=== PATIENT | female | born 1985 | race Caucasian/White ===

== ENCOUNTER 2019-11-10 13:54 | Inpatient (IN) | payer SELFPAY ==
[2019-11-10] MEDS ORDERED: AMPICILLIN/SULBACTAM 3 GM in SODIUM CHLORIDE 0.9% MINIBAG 100 ML IV STA (13:58)
[2019-11-10] MEDS ORDERED: IOVERSOL 320 100 ML VIAL IVP ONE ×2 (14:11→16:50)
[2019-11-10 14:16] LABS: BASOPHILS # (AUTO) 0.1 10^3/uL (0.0-0.1); BASOPHILS % (AUTO) 0.4 %; EOSINOPHILS # (AUTO) 0.1 10^3/uL (0.0-0.7); EOSINOPHILS % (AUTO) 0.3 %; HGB - HEMOGLOBIN 13.6 g/dL (12.0-16.0); LYMPHOCYTES # (AUTO) 1.7 10^3/uL (1.5-3.5); LYMPHOCYTES % (AUTO) 10.3 %; MEAN CORPUSCULAR HEMOGLOBIN 32.3 pg (27.0-31.0); MEAN CORPUSCULAR HGB CONC 33.4 g/dL (32.0-36.0); MEAN CORPUSCULAR VOLUME 96.7 fL (81.0-99.0); MONOCYTES % (AUTO) 6.1 %; NEUTROPHILS # (AUTO) 13.2 10^3/uL (1.5-6.6); NEUTROPHILS % (AUTO) 82.2 %; PLT - PLATELET COUNT 298 10^3/uL (130-450); RED BLOOD COUNT 4.21 10^6/uL (4.20-5.40); RED CELL DISTRIBUTION WIDTH 12.1 % (12.0-15.0)
[2019-11-10 14:25] LABS: CALCIUM 9.2 mg/dL (8.5-10.3); CREATININE 0.6 mg/dL (0.4-1.0)
[2019-11-10] MEDS ORDERED: MORPHINE 2 MG/ML CARPUJECT IVP STA (14:52)
--- NOTE | 2019-11-10 14:54 | ED Physician Documentation ---
PD HPI HEENT - Stated complaint Stated Complaint: MOUTH PX/SENT BY - Chief complaint Chief Complaint: Heent - History obtained from History obtained from: Patient - History of Present Illness Timing - onset: How many days ago (2-3) Timing - duration: Days (2-3) Timing - details: Abrupt onset Severity Comments: moderate to severe Location: Other (Right facial swelling, mouth pain, dental pain) Improves: Nothing Worsens: Other (palpation, opening her mouth) Associated symptoms: Trismus, Facial swelling. No: Fever, Congestion Similar symptoms before: Has not had sx before Recently seen: Clinic (was seen in ENT clinic this morning and referred to the ED for labs, IV, and CT imaging evaluation) - Treatment prior to arrival Treatment prior to arrival: tylenol earlier today Review of Systems Ten Systems: 10 systems reviewed and negative Constitutional: denies: Fever, Chills Ears: reports: Reviewed and negative Nose: reports: Reviewed and negative Throat: reports: Dental pain / toothache GI: denies: Nausea, Vomiting Skin: reports: Reviewed and negative Musculoskeletal: denies: Neck pain Neurologic: reports: Reviewed and negative. denies: Headache Psychiatric: reports: Reviewed and negative Endocrine: reports: Reviewed and negative Immunocompromised: reports: Reviewed and negative PD PAST MEDICAL HISTORY - Past Medical History Past Medical History: No - Allergies Allergies/Adverse Reactions: Allergies Allergy/AdvReac Type Severity Reaction Status Date / Time No Known Drug Allergies Allergy Verified 11/10/19 14:14 PD ED PE NORMAL - Vitals Vital signs reviewed: Yes - General General: Alert and oriented X 3, No acute distress, Well developed/nourished - HEENT HEENT: Atraumatic - Cardiac Cardiac: RRR - Respiratory Respiratory: No respiratory distress - Abdomen Abdomen: Soft, Non distended - Female Female : Deferred - Rectal Rectal: Deferred - Derm Derm: Normal color, Warm and dry, No rash - Neuro Neuro: Alert and oriented X 3 Eye Opening: Spontaneous Motor: Obeys Commands Verbal: Oriented GCS Score: 15 - Psych Psych: Normal mood, Normal affect PD ED PE EXPANDED - HEENT HEENT: Other (Large amount of R jaw line swelling, mucous membranes moist, trismus present, unable to visualize inside of mouth. The sweling is firm and tender. no erythema) - Neck Neck: Other (Right submandibular swelling and tenderness that is moderate to severe) Results - Vitals Vitals: Vital Signs - 24 hr 11/10/19 11/10/19 14:14 15:59 Temperature 37.2 C Heart Rate 88 80 Respiratory 18 18 Rate Blood Pressure 141/75 H 133/71 H O2 Saturation 100 100 Oxygen O2 Source Room air - Labs Labs: Laboratory Tests 11/10/19 11/10/19 14:14 14:14 WBC 16.0 H RBC 4.21 Hgb 13.6 Hct 40.7 MCV 96.7 MCH 32.3 H MCHC 33.4 RDW 12.1 Plt Count 298 MPV 10.0 Neut # (Auto) 13.2 H Lymph # (Auto) 1.7 [place]imes # (Auto) 1.0 Eos # (Auto) 0.1 Baso # (Auto) 0.1 Absolute Nucleated RBC 0.00 Nucleated RBC % 0.0 Sodium 138 Potassium 3.6 Chloride 102 Carbon Dioxide 23 Anion Gap 13.0 BUN 9 Creatinine 0.6 Estimated GFR (MDRD) 115 Glucose 90 Calcium 9.2 PD MEDICAL DECISION MAKING - ED course Complexity details: reviewed results, re-evaluated patient, considered differential, d/w patient, d/w customer sales consultant ED course: ddx- submandibular abscess, savanah's angina, dental abscess 34 y/o F with dental pain and worsening facial swelling for 2-3 days, afebrile but with obvious facial swelling and trismus. Sent in to the ED by Dr. Michaud who will take her to the OR today for management. Obtained labs, CT scan and given antibiotics. pt does have a [id number] mm R submandibular abscess with a periapical mandibular tooth abscess needing operative management. SHe is currently maintaining her airway and Dr. Michaud is on the way into the ED to take her to the OR thus will hold off on intubation for OR unless she has worsening clinical symptoms. Hospitalist. will admit the pt to medicine with Dr. Michaud managing her surgically. Departure - Departure Disposition: [facility] DC/Xfer Clinical Impression: Abscess or cellulitis of submandibular region Condition: Serious Record reviewed to determine appropriate education?: Yes
--- NOTE | 2019-11-10 16:23 | CT Report ---
Reason: submanidublar abscess Procedure Date: 11/10/2019 Accession Number: [id number] / [id number] Procedure: CT - SOFT TISSUE NECK W CPT Code: Final Report FULL RESULT: EXAM: CT SOFT TISSUE NECK WITH CONTRAST. EXAM DATE: 11/10/2019 03:43 PM. HISTORY: Right submandibular swelling. Concern for mass or abscess. COMPARISONS: None. TECHNIQUE: Routine soft tissue neck CT protocol with contrast. Reconstructions: Coronal and sagittal. IV contrast: Optiray 320, [address] In [address] with [address] protocol optimization, one or more of the following dose reduction techniques were utilized for this exam: automated exposure control, adjustment of mA and/or KV based on patient size, or use of iterative reconstructive technique. FINDINGS: Visualized Intracranial Contents: Unremarkable. Orbits: Symmetric and unremarkable. Sinuses: Visualized paranasal sinuses and mastoid air cells are clear. Oral cavity: The visualized oral cavity is unremarkable. Mild effacement of the right base of the tongue is seen secondary to submandibular space abscess and surrounding inflammation. No intrinsic tongue density abnormality is appreciated. Pharynx: Mild effacement of the right vallecula is seen. Otherwise pharyngeal mucosa is unremarkable. The coater helper spaces and pterygopalatine fossa are unremarkable. The infratemporal fossa, parapharyngeal spaces, and retropharyngeal space are unremarkable. The base of the tongue is symmetric and unremarkable. The airway is patent. Larynx: Larynx and supraglottic airway are patent without mass lesion. Vocal cords are symmetric. The visualized trachea is unremarkable. Parotid and Submandibular Glands: Extrinsic mass effect with inferior and anteromedial displacement of the right submandibular gland is appreciated. No definite intrinsic signal abnormality is seen. No calculus is evident. The left submandibular gland and bilateral parotid glands are unremarkable. Lymph Nodes: Enlarged right level I and level II lymph nodes are present. No hypodensity is seen to suggest lymph node abscess. Soft Tissues: Rim-enhancing hypodense collection consistent with abscess is seen along the inferior margin of the posterior body and angle of the mandible. This measures 15 x 28 x 24 mm. There is adjacent periapical abscess involving right mandibular posterior tricuspid tooth. Medial cortical erosion is present. Caries is seen within this tooth as well. Surrounding fascial plane edema is seen centered in the right submandibular space. Lateral displacement and thickening of the right platysma muscle is seen. Mild fascial plane edema is seen superficial to the right masseter muscle and inferior parotid gland. Mild fascial plane edema extends inferiorly into the anterior cervical space. Vascular Structures: Patent and unremarkable. Thyroid Gland: Normal. Lung: The visualized lung apices are clear. Bones: Mild kyphosis of the cervical spine is noted. No lytic or blastic bony lesions are seen. Minimal spondylosis with dorsal disk bulge is seen at C4-C5 and C5-C6. Other: None. IMPRESSION: 1. Periapical abscess involving right mandibular posterior tricuspid tooth. Medial cortical erosion is seen. Adjacent abscess is present inferior to the angle of the mandible measuring 15 x 28 x 24 mm. Surrounding fascial plane edema and mass effect is present. 2. Reactive lymphadenopathy is seen involving right level I and level II lymph nodes. No lymph node abscess is seen. RADIA The call report notification system was initiated by Dr. Igor Garsia at 04:14 PM on 11/10/2019. The above call report findings were discussed with Debra Miller by Dr. Igor Garsia at 04:22 PM on 11/10/2019.
[2019-11-10] MEDS ORDERED: SODIUM CHLORIDE 0.9% 1,000 ML IV ONE (16:36)
[2019-11-10] MEDS ORDERED: ONDANSETRON 4 MG/2 ML VIAL IVP PRN (16:44)
[2019-11-10] MEDS ORDERED: ONDANSETRON ODT 4 MG TABLET TL PRN (16:44)
[2019-11-10] MEDS ORDERED: SODIUM CHLORIDE FLUSH 0.9% 10 ML SYRINGE IVP PRN (16:44)
--- NOTE | 2019-11-10 18:00 | ANESTHESIA ---
Pre-Anesthesia VS, & Labs - Diagnosis R jaw swelling abcess - Procedure R Jaw I&D Vital Signs: Temp Pulse Resp BP Pulse Ox 37.2 C 80 18 133/71 H 100 11/10/19 14:14 11/10/19 15:59 11/10/19 15:59 11/10/19 15:59 11/10/19 15:59 Height 5 ft 7 in Weight (kg) 69.853 kg Body Mass Index 24.1 - NPO >8 hours - Is Patient ?: Waiver signed - Lab Results Current Lab Results: Laboratory Tests 11/10/19 14:14: Sodium 138, Potassium 3.6, Chloride 102, Carbon Dioxide 23, Anion Gap 13.0, BUN 9, Creatinine 0.6, Estimated GFR (MDRD) 115, Glucose 90, Calcium 9.2 11/10/19 14:14: WBC 16.0 H, RBC 4.21, Hgb 13.6, Hct 40.7, MCV 96.7, MCH 32.3 H, MCHC 33.4, RDW 12.1, Plt Count 298, MPV 10.0, Neut # (Auto) 13.2 H, Lymph # (Auto) 1.7, [place] # (Auto) 1.0, Eos # (Auto) 0.1, Baso # (Auto) 0.1, Absolute Nucleated RBC 0.00, Nucleated RBC % 0.0 Lab results reviewed: Yes Fish Bones: 11/10/19 14:14 11/10/19 14:14 Home Medications and Allergies Active Medications Sodium Chloride (Normal Saline 0.9%) 1,000 mls @ 100 mls/hr IV .Q10H CHASE Ampicillin Sodium/Sulbactam (Sodium 3 gm/ Sodium Chloride) 100 mls @ 200 mls/hr IV Q6HR CHASE Morphine Sulfate (Morphine (Carpuject)) 2 mg IVP Q2HR PRN PRN Reason: Pain 8 to 10 Ondansetron HCl (Zofran Inj) 4 mg IVP Q6HR PRN PRN Reason: Nausea / Vomiting Ondansetron HCl (Zofran Odt) 4 mg TL Q6HR PRN PRN Reason: Nausea / Vomiting Sodium Chloride (Normal Saline Flush 0.9%) 10 ml IVP PRN PRN PRN Reason: NEEDED PER PROVIDER ORDERS Sodium Chloride (Normal Saline Flush 0.9%) 10 ml IVP 0100,0900,1700 [facility] Allergies/Adverse Reactions: Allergies Allergy/AdvReac Type Severity Reaction Status Date / Time No Known Drug Allergies Allergy Verified 11/10/19 14:14 Anes History & Medical History - Anesthetic History Anesthesia Complications: reports: No previous complications Family history of Anesthesia Complications: Denies Family history of Malignant Hyperthermia: Denies - Medical History Cardiovascular: reports: None Pulmonary: reports: None Gastrointestinal: reports: None Urinary: reports: None Neuro: reports: None Musculoskeletal: reports: None Endocrine/Autoimmune: reports: None Blood Disorders: reports: None Smoking Status: Never smoker Psychosocial: reports: Cannabis - Surgical History Orthopedic: Other (wrist) Exam General: Alert, Oriented x3, Cooperative Dental: WNL (#7 at front chipped) Neck Mobility: Normal Mallampati classification: III (normally no difficulty with mouth opening.) Thyromental Distance: 4-6 cm Respiratory: Lungs clear, Normal breath sounds Cardiovascular: Regular rate Neurological: Normal speech Mental/Cognitive Status: Alert/Oriented X3, Normal for patient Cognitive Status: Within normal limits Plan Anesthesia Type: General Consent for Procedure(s) Verified and Reviewed: Yes Code Status: Attempt Resuscitation ASA classification: 2-Mild systemic disease Is this case an emergency?: Yes
--- NOTE | 2019-11-10 18:19 | HISTORY & PHYSICAL EXAMINATION ---
Chief Complaint - Chief Complaint Chief Complaint: right jaw pain/swelling History of Present Illness - Admitted From Admitted From:: Home/ER - History Obtained From Records Reviewed: [facility] History obtained from: patient, mom Exam Limitations: none - History of Present Illness HPI Comment/Other: She is a 34-year-old white female who has no major medical illnesses the presents to our emergency room because of jaw pain and swelling.She says that she has this intermittently because of a wisdom tooth on the right side of her jaw that will have growth spurts. Usually pain is transitory, fleeting, and does not last for very long. And only her gum will get swollen. This time the swelling has extended into her jaw and into her face and down her neck and it is scaring her.She went to go see the dentist, who referred her to the emergency room for imaging studies. She has been identified as having a tooth abscess extending into the jaw.On review of systems she has no problems with chest pain, previous history of valvular heart disease, arrhythmias, pneumonias or bronchitis, urgency, frequency, dysuria.She does not take any medication on a regular basis.She has an IUD for control. She does not have a fever but white cell count is 16,000.Soft tissue neck CT shows apparent a couple abscess involving the right mandibular posterior tricuspid tooth. Medial cortical erosion seen with adjacent abscess present to the inferior of the angle of the mandible measuring 15 x 28 x 24 mm. Surrounding fascial plane edema and mass-effect is present. History - Past Medical History Cardiovascular: reports: None Respiratory: reports: None Neuro: reports: None Endocrine/Autoimmune: reports: None GI: reports: None [employer] BUSINESS DEVELOPER: reports: Other (, has IUD) : reports: None HEENT: reports: Chronic vision loss Psych: reports: Anxiety (that she treats w yoga, meditation, eating well, sleeping well and occ cannibus) Musculoskeletal: reports: None MRSA Hx?: No - Past Surgical History Ortho: reports: Other (wrist surgery for extra cartilage) - Family & Social History Family History Comment/Other: Mom is 63 and completely healthy without any high blood pressure, diabetes, thyroid disease, bleeding disorder, cancer. Dad is 57 years and also completely healthy. 1 sister is completely healthy. Never had children Living arrangement: At home Living Situation: Alone Social History Notes: She works as a catering manager for a [email or web address] She is been once and in the last 5 years.She used to smoke 3 cigarettes a day And stopped 5 years ago After a 10-year history.She drinks about 2-3 beers on Friday and Friday. She does cannabis here and there.No history of other recreational substance abuse.Last use of smoking cannibus 3 days ago. - Substance History Use: Uses substance without health or social issues: Cannabis Abuse: Recurrent use of substance despite neg consequences: NONE Dependence: Experiences withdrawal or developed tolerances: NONE Meds/Allgy - Allergies Allergies/Adverse Reactions: Allergies Allergy/AdvReac Type Severity Reaction Status Date / Time No Known Drug Allergies Allergy Verified 11/10/19 14:14 Review of Systems - Constitutional Constitutional: reports: Poor appetite. denies: Fatigue, Fever, Chills, Malaise - Eyes Eyes: denies: Pain, Irritation, Amaurosis, Blurred vision, Field loss, Vision loss - Ears, Nose & Throat Ears, Nose & Throat: reports: Ear pain (right), Sore throat (right), Bleeding gums (right), Dental decay (right), Dental pain (right), Other (swelling of face and neck for 2-3 days) - Cardiovascular Cariovascular: denies: Irregular heart rate, Palpitations, Chest pain, Edema, Exertional dyspnea, Decr. exercise tolerance - Respiratory Respiratory: denies: Cough, Sputum production, Wheezing, Hemoptysis, Orthopnea, SOB at rest, SOB with exertion - Gastrointestinal Gastrointestinal: denies: Abdominal pain, Abdominal distention, Constipation, Di arrhea, Change in bowel habits - Genitourinary Genitourinary: denies: Dysuria, Frequency, Urgency, Hematuria - Musculoskeletal Musculoskeletal: denies: Muscle pain, Back pain, Muscle aches, Stiffness - Integumentary Integumentary: denies: Rash, Pruritis, Acne - Neurological Neurological: denies: General weakness, Focal weakness, Headache, Dizziness - Psychiatric Psychiatric: denies: Depression, Anxiety, Suicidal - Endocrine Endocrine: denies: Polyuria, Polydypsia, Polyphagia, Intolerance to cold - Hematologic/Lymphatic Hematologic/Lymphatic: denies: Anemia, Bruising, Petechiae, Bleeding tendencies Prior Level of Functionality: completely dependent with living alone, driving, paying bills, 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 Exam - Vital Signs Reviewed Vital Signs: Yes Vital Signs: Vital Signs x48h Temp Pulse Resp BP Pulse Ox 11/10/19 15:59 80 18 133/71 H 100 11/10/19 14:14 37.2 C 88 18 141/75 H 100 - Physical Exam General Appearance: positive: Alert, Moderate distress, Other (mom is at the bedside) Eyes Bilateral: positive: PERRL, EOMI ENT: positive: Other (right gum line along back molar turgid, painful w edema of cheek on that side) Neck: positive: No JVD, Trachea midline, Swelling/bruising (starts along right TMJ, extends down neck with some redness of skin), Other (no stridor, no drooling) Respiratory: positive: Chest non-tender, No respiratory distress, Other (no stridor). negative: Wheezes, Rales, Rhonchi Cardiovascular: positive: Regular rate & rhythm. negative: Systolic murmur, Gallop/S4, Friction rub Peripheral Pulses: positive: 1+ Abdomen: positive: Non-tender, No organomegaly, Nml bowel sounds, No distention Skin: positive: Warm, Dry. negative: Diaphoresis, Pallor Extremities: positive: Non-tender, Full ROM. negative: Nml appearance (right w rist has scar and slight deformit at base of thumb) Neurologic/Psychiatric: positive: Oriented x3, CN's nml (2-12), Motor nml, Sensation nml Conclusion/Plan - Problem List (1) Abscess or cellulitis of submandibular region Conclusion/Plan: she has already received unasyn which will continue for the next 48 hours. oral maxillofacial surgery has been contacted and he has asked that patient be admitted to our service. [facility] with IV tylenol, toradol, morphine until she can eat. (2) Pre-op evaluation Conclusion/Plan: .Surgical risk calculator has 5.5% risk of serious complication, 6.3% risk of any complication. She has a 0% risk of cardiac complication . Predicted length of hospital stay is 2.5 days - Lab Results Lab results reviewed: Yes Fish Bones: 11/10/19 14:14 11/10/19 14:14 - Diagnostic Imaging Results Diagnostic Imaging Results: positive: Final report reviewed Core Measures - Anticipated LOS I expect patient to be DC'd or transferred within 96 hours.: Yes - DVT/VTE - Prophylaxis VTE/DVT Device ordered at admit?: Yes
--- NOTE | 2019-11-10 18:27 | CONSULTATION NOTE ---
Referring Provider Name of Referring Provider:: Vero Aguilar Consult Date: 11/10/19 Chief Complaint - Chief Complaint Chief Complaint: Right neck swelling History of Present Illness - Admitted From Admitted From:: ER - History Obtained From Records Reviewed: Yes History obtained from: Patient - History of Present Illness HPI Comment/Other: 3 day h/o swelling of the R face, worsening daily. Prior h/o pain associated w/ tooth #32. Denies dysphagia, dyspnea. Endorses fever, globus, severe trismus, pain of the right mandible and neck. Accompanied by mother. CT max/face demonstrated 3 cm abscess and OMFS was consulted for evaluation and management. History - Past Medical History Cardiovascular: reports: None Respiratory: reports: None Neuro: reports: None Endocrine/Autoimmune: reports: None GI: reports: None : reports: None Musculoskeletal: reports: None - Past Surgical History Ortho: reports: Other (wrist) Meds/Allgy - Allergies Allergies/Adverse Reactions: Allergies Allergy/AdvReac Type Severity Reaction Status Date / Time No Known Drug Allergies Allergy Verified 11/10/19 14:14 Review of Systems - Other Findings Other Findings: A 14 point ROS was completed and found to be negative except as noted above in HPI. Exam - Vital Signs Vital Signs: Vital Signs x48h Temp Pulse Resp BP Pulse Ox 11/10/19 15:59 80 18 133/71 H 100 11/10/19 14:14 37.2 C 88 18 141/75 H 100 - Physical Exam General Appearance: positive: No acute distress Eyes Bilateral: positive: PERRL, EOMI ENT: positive: Other (GUANAKO 9mm. Uvula, pharynx could not be visualized because of trismus. TTP of the R mandibular vestibule. No active drainage. There is moderate swelling of the R buccal space which is indurated and ttp. The swelling extends inferiorly to the thyroid cartilage. The skin over the swelling is soft, red, and tender. There is no breakdown of the overlying skin. The inferior border of the right mandible cannot be palpated. The floor of the mouth is elevated and tender on the right, but there is no appreciable elevation of the tongue. The patient is handling their secretions well and laying supine comfortably.) Neck: positive: Other (Swelling as noted above. Lymphadenopathy noted in the left neck.) Respiratory: positive: No respiratory distress, Breath sounds nml Cardiovascular: positive: Regular rate & rhythm, No murmur Peripheral Pulses: positive: 2+ Abdomen: positive: Non-tender, No distention Skin: positive: Other (clean, dry, and intact with erythema and tenderness of the right neck as noted above) Extremities: positive: Full ROM, Nml appearance Neurologic/Psychiatric: positive: Oriented x3, CN's nml (2-12) Conclusion/Plan - Diagnosis Diagnosis: Right submandibular, sublingual, and buccal spp abscess 2/2 necrotic tooth #32 - Plan Plan: We anticipate incision and drainage of the right submandibular, sublingual, and buccal spaces with removal of tooth #32 tonight in the [facility]. - NPO until surgery, soft diet after surgery - continue Unasyn while in house, Augmentin for seven additional days after d/c - Elevate HOB 30 degrees - encourage ambulation - cbc w/ dif daily am Drain care: Cover drain w/ gauze. Use tubular dressing around neck to secure the gauze. Change gauze at least twice daily, more often if necessary. The 1/4 inch elisha drain in the neck is secured with suture. Needs to be removed prior to discharge. Have the patient remove the dressing and shower daily in the am, then place a new dressing. Appreciate IM assistance in the care of Summer. Please call with any questions: [phone] - Lab Results Lab results reviewed: Yes Fish Bones: 11/10/19 14:14 11/10/19 14:14
[2019-11-10] MEDS: MORPHINE 2 MG/ML CARPUJECT IVP PRN (19:03)
[2019-11-10] MEDS: SODIUM CHLORIDE FLUSH 0.9% 10 ML SYRINGE IVP SCH (19:03)
[2019-11-10] MEDS: SODIUM CHLORIDE 0.9% 1,000 ML IV SCH ×2 (19:04→23:17)
[2019-11-10 19:10] LABS: HCG UR QUAL NEGATIVE
[2019-11-10] MEDS: ACETAMINOPHEN 325 MG TABLET PO PRN (20:47)
[2019-11-10] MEDS ORDERED: LIDOCAINE MPF 2%-EPI 1:200000 20 ML VIAL ONE (21:17)
[2019-11-10] MEDS ORDERED: CHLORHEXIDINE GLUCONATE 15 ML UDC PO ONE (22:02)
[2019-11-10] MEDS ORDERED: LACTATED RINGERS 1,000 ML IV ONE ×3 (22:24→23:00)
[2019-11-10] MEDS: AMPICILLIN/SULBACTAM 3 GM in SODIUM CHLORIDE 0.9% MINIBAG 100 ML IV SCH (22:27)
[2019-11-10] MEDS ORDERED: HYDROmorphone 0.5 MG/0.5 ML SYRINGE ONE (22:56)
[2019-11-11] MEDS: MORPHINE 2 MG/ML CARPUJECT IVP PRN ×4 (00:24→18:31)
[2019-11-11] MEDS: SODIUM CHLORIDE FLUSH 0.9% 10 ML SYRINGE IVP SCH ×4 (00:25→23:51)
[2019-11-11 05:24] LABS: BASOPHILS % (AUTO) 0.2 %; HGB - HEMOGLOBIN 12.3 g/dL (12.0-16.0); LYMPHOCYTES # (AUTO) 0.7 10^3/uL (1.5-3.5); LYMPHOCYTES % (AUTO) 4.3 %; MEAN CORPUSCULAR HEMOGLOBIN 31.4 pg (27.0-31.0); MEAN CORPUSCULAR HGB CONC 32.5 g/dL (32.0-36.0); MEAN CORPUSCULAR VOLUME 96.7 fL (81.0-99.0); MEAN PLATELET VOLUME 10.5 fL (7.9-10.8); MONOCYTES # (AUTO) 0.3 10^3/uL (0.0-1.0); MONOCYTES % (AUTO) 1.8 %; NEUTROPHILS # (AUTO) 15.1 10^3/uL (1.5-6.6); NEUTROPHILS % (AUTO) 92.9 %; PLT - PLATELET COUNT 293 10^3/uL (130-450); RED BLOOD COUNT 3.92 10^6/uL (4.20-5.40); WHITE BLOOD COUNT 16.2 x10^3/uL (4.8-10.8)
[2019-11-11] MEDS: AMPICILLIN/SULBACTAM 3 GM in SODIUM CHLORIDE 0.9% MINIBAG 100 ML IV SCH ×4 (05:59→23:50)
--- NOTE | 2019-11-11 06:39 | OPERATIVE REPORT ---
DATE OF SERVICE: 11/10/2019 Physician: Rosales Ogden DDS PREOPERATIVE DIAGNOSIS: Right buccal space, submandibular space and sublingual space abscess seconda ry to necrotic tooth #32. POSTOPERATIVE DIAGNOSIS: Right buccal space, submandibular space and sublingual space abscess second abdelrahman to necrotic tooth #32. PROCEDURE PERFORMED: Extraoral incision and drainage of the right buccal submandibular and sublingua l spaces with surgical extraction of tooth #32. PRIMARY SURGEON: Rosales Ogden DDS [place] DEMONSTRATOR: Amaya ANESTHESIA TYPE: General anesthesia via oral endotracheal intubation. MEDICAL STENOGRAPHER: Adeel SPECIMENS: A culture swab of the right neck purulence was sent to Micro for Gram stain, aerobic and anaerobic culture. DRAINS, PACKS, CATHETERS: A 1/4 inch Crosby was placed in the right neck. COMPLICATIONS: None. ESTIMATED BLOOD LOSS: 10 mL INDICATIONS FOR SURGERY: This is a 34-year-old female who presented to my office for right facial sw elling. Clinical and radiographic examination was consistent with an abscess of the right buccal sub mandibular and sublingual spaces with severe trismus and pain. It was determined that drainage of th e abscess with removal of the offending tooth was necessary. The risks, benefits and alternatives of this plan were discussed with the patient including pain, swelling, bleeding, infection, damage to a djacent teeth, damage to nerves, scarring, poor cosmesis, need for further surgery, paralysis of the muscles of the face, numbness of the muscles of the face, specifically the lip, chin or tongue and re currence of the infection. Adequate time was given to answer all questions and informed consent was obtained. DESCRIPTION OF PROCEDURE: The patient was brought to the main operating room and placed in a supine position on the operating table. General anesthesia was induced by the anesthesia team and the airwa y was secured with an oral endotracheal tube taped to the left side of the face. All pressure points were padded and checked. The patient was prepped and draped in the standard sterile fashion for an intraoral and extraoral surgical procedure. A formal timeout was executed. Local anesthesia was ach ieved with 7 mL of 2% lidocaine with 1:100,000 epinephrine. Attention was directed to the mouth, whe re a throat pack was placed. Attention was then directed to the right neck, where a #15 blade was us ed to make a 1.5 cm incision in a skin fold. A curved Elisabeth was then used to dissect bluntly from th e incision, which was only through skin up to the right inferior border of the mandible. At this poi nt, it was felt to easily drop into the abscess and purulence began to flow from the neck incision. The purulence was sampled and the sample was sent to Microbiology. The buccal space was explored. T he submandibular space was explored and the sublingual space was explored with the curved raj Barber care to explore all aspects of the abscess cavity. The area was massaged by hand until all purule nce could be expressed and then it was irrigated copiously with approximately 500 mL of sterile salin e. We stopped suddenly when we realized that there was increasing swelling of the right buccal space , likely secondary to irrigation infiltration into the skin, but by this time adequate irrigation had been performed. Attention was directed into the mouth, toward the right mandible. The tooth was re moved with an elevator and forceps. The site was curetted and irrigated. Attention was directed monica k to the right neck. A 1/4 inch Marcy drain was placed into the right neck and up into the submand ibular space. It was secured into place with a 2-0 silk suture. The patient's face and mouth were t hen cleansed. The Tegaderm was removed from the eyes. The throat pack was removed. The mouth was d ressed with a 4 x 4 gauze and the right neck was dressed with clean gauze as well. Care of the patie nt was returned to the anesthesia team for uneventful emergence from anesthesia, extubation and trans ferred to the PACU with the patient in stable condition. TD: 11/10/2019 22:43
[2019-11-11] MEDS: SODIUM CHLORIDE 0.9% 1,000 ML IV SCH ×2 (09:22→21:06)
--- NOTE | 2019-11-11 09:27 | PROVIDER PROGRESS NOTE ---
Subjective - Prog Note Date Prog Note Date: 11/11/19 Prog Note Time: 09:24 - Subjective Subjective: She underwent the surgery last night. Today her jaw is stiff. She can barely open it. Is hard to eat. But she is been drinking plenty of fluids. Pain is controlled with the morphine. No fever spike but her white cell count is still 16,000. Current Medications - Current Medications Current Medications: Active Medications Acetaminophen (Tylenol) 650 mg PO Q4HR PRN PRN Reason: Pain or Fever > 38C (100.4F) Last Admin: 11/10/19 20:47 Dose: 650 mg Sodium Chloride (Normal Saline 0.9%) 1,000 mls @ 100 mls/hr IV .Q10H [facility] Last Admin: 11/11/19 09:22 Dose: 100 mls/hr Ampicillin Sodium/Sulbactam (Sodium 3 gm/ Sodium Chloride) 100 mls @ 200 mls/hr IV Q6HR [facility] Last Infusion: 11/11/19 07:09 Dose: Infused Morphine Sulfate (Morphine (Carpuject)) 2 mg IVP Q2HR PRN PRN Reason: Pain 8 to 10 Last Admin: 11/11/19 07:08 Dose: 2 mg Ondansetron HCl (Zofran Inj) 4 mg IVP Q6HR PRN PRN Reason: Nausea / Vomiting Ondansetron HCl (Zofran Odt) 4 mg TL Q6HR PRN PRN Reason: Nausea / Vomiting Sodium Chloride (Normal Saline Flush 0.9%) 10 ml IVP PRN PRN PRN Reason: NEEDED PER PROVIDER ORDERS Sodium Chloride (Normal Saline Flush 0.9%) 10 ml IVP 0100,0900,1700 [facility] Last Admin: 11/11/19 07:08 Dose: 10 ml Objective - Vital Signs/Intake & Output Reviewed Vital Signs: Yes Vital Signs: Vital Signs x48h Temp Pulse Resp BP Pulse Ox 11/11/19 07:30 37 C 88 16 114/66 96 11/11/19 05:54 36.9 C 91 16 123/63 97 11/11/19 02:00 36.7 C 93 16 115/61 96 Intake & Output: Intake & Output 11/08/19 11/09/19 11/10/19 11/11/19 23:59 23:59 23:59 23:59 Intake Total 3549.278 0334 Output Total 2700 Balance 1521.667 -1480 - Objective General Appearance: positive: Alert Eyes Bilateral: positive: PERRL, EOMI ENT: positive: Other (The right side of her face is still swollen along her jawline, extending into her neck. It is covered by bandage. No redness no heat.) Neck: positive: No JVD. negative: Trachea midline, Stiff neck Respiratory: positive: Chest non-tender. negative: Wheezes, Rales, Rhonchi Cardiovascular: positive: Regular rate & rhythm. negative: Systolic murmur, Gallop/S4, Friction rub Abdomen: positive: Non-tender, No organomegaly, Nml bowel sounds, No distention Skin: positive: Warm, Dry Extremities: positive: Full ROM, No pedal edema Neurologic/Psychiatric: positive: Oriented x3, CN's nml (2-12), Motor nml, Sensation nml - Lab Results Fish Bones: 11/11/19 04:50 11/10/19 14:14 Other Labs: Lab Results x24hrs 11/11/19 11/10/19 11/10/19 Range/Units 04:50 18:55 14:14 WBC 16.2 H (4.8-10.8) x10^3/uL RBC 3.92 L (4.20-5.40) 10^6/uL Hgb 12.3 (12.0-16.0) g/dL Hct 37.9 (37.0-47.0) % MCV 96.7 (81.0-99.0) fL MCH 31.4 H (27.0-31.0) pg MCHC 32.5 (32.0-36.0) g/dL RDW 12.0 (12.0-15.0) % Plt Count 293 (130-450) 10^3/uL MPV 10.5 (7.9-10.8) fL Neut # (Auto) 15.1 H (1.5-6.6) 10^3/uL Lymph # (Auto) 0.7 L (1.5-3.5) 10^3/uL [place] # (Auto) 0.3 (0.0-1.0) 10^3/uL Eos # (Auto) 0.0 (0.0-0.7) 10^3/uL Baso # (Auto) 0.0 (0.0-0.1) 10^3/uL Absolute Nucleated RBC 0.00 x10^3/uL Nucleated RBC % 0.0 /100WBC Sodium 138 (135-145) mmol/L Potassium 3.6 (3.5-5.0) mmol/L Chloride 102 (101-111) mmol/L Carbon Dioxide 23 (21-32) mmol/L Anion Gap 13.0 (6-13) BUN 9 (6-20) mg/dL Creatinine 0.6 (0.4-1.0) mg/dL Estimated GFR (MDRD) 115 (>89) Glucose 90 (70-100) mg/dL Calcium 9.2 (8.5-10.3) mg/dL Ur Specific [place] 1.025 (1.002-1.030) Urine HCG, Qual NEGATIVE 11/10/19 Range/Units 14:14 WBC 16.0 H (4.8-10.8) x10^3/uL RBC 4.21 (4.20-5.40) 10^6/uL Hgb 13.6 (12.0-16.0) g/dL Hct 40.7 (37.0-47.0) % MCV 96.7 (81.0-99.0) fL MCH 32.3 H (27.0-31.0) pg MCHC 33.4 (32.0-36.0) g/dL RDW 12.1 (12.0-15.0) % Plt Count 298 (130-450) 10^3/uL MPV 10.0 (7.9-10.8) fL Neut # (Auto) 13.2 H (1.5-6.6) 10^3/uL Lymph # (Auto) 1.7 (1.5-3.5) 10^3/uL [place] # (Auto) 1.0 (0.0-1.0) 10^3/uL Eos # (Auto) 0.1 (0.0-0.7) 10^3/uL Baso # (Auto) 0.1 (0.0-0.1) 10^3/uL Absolute Nucleated RBC 0.00 x10^3/uL Nucleated RBC % 0.0 /100WBC Sodium (135-145) mmol/L Potassium (3.5-5.0) mmol/L Chloride (101-111) mmol/L Carbon Dioxide (21-32) mmol/L Anion Gap (6-13) BUN (6-20) mg/dL Creatinine (0.4-1.0) mg/dL Estimated GFR (MDRD) (>89) Glucose (70-100) mg/dL Calcium (8.5-10.3) mg/dL Ur Specific [place] (1.002-1.030) Urine HCG, Qual ABX Reporting Has patient been on IV antibiotics over the past 48 hours?: Yes Assessment/Plan - Problem List (1) Abscess or cellulitis of submandibular region Impression: Postoperative day #1 for IND of abscess from right back molar/wisdom tooth. Plan: Continue pain management and start to transition to oral pain management Encourage p.o. intake with soft foods She is already drinking plenty of fluids and will stop IV hydration Continue Unasyn and transition to p.o. Augmentin at discharge Discharge decision to be made by surgery
[2019-11-11] MEDS: LACTOBACILLUS RHAMNOSUS GG CAPSULE PO SCH (13:50)
--- NOTE | 2019-11-11 13:50 | PROVIDER PROGRESS NOTE ---
Subjective - Prog Note Date Prog Note Date: 11/11/19 Prog Note Time: 13:48 - Subjective Pt reports feeling: Improved Subjective: No events overnight. Feeling much better. Less pain. Mouth opening markedly improved. Ambulating and voiding w/out difficulty. MInimal pain med needs. Small PO intake still. Objective - Vital Signs/Intake & Output Reviewed Vital Signs: Yes Vital Signs: Vital Signs x48h Temp Pulse Resp BP Pulse Ox 11/11/19 10:00 37.0 C 88 16 114/66 96 11/11/19 07:30 37 C 88 16 114/66 96 11/11/19 05:54 36.9 C 91 16 123/63 97 Intake & Output: Intake & Output 11/08/19 11/09/19 11/10/19 11/11/19 23:59 23:59 23:59 23:59 Intake Total 6360.640 0652 Output Total 3500 Balance 1521.667 -2060 - Objective General Appearance: positive: No acute distress Eyes Bilateral: positive: PERRL, EOMI ENT: positive: Other (GUANAKO 12mm. No bleeding or drainage. MOderate postop edema. R neck and face remain swollen and indurated with only mild improvement since yesterday. Drain intact. Moderate serosanguinous draiange, no purlence.) - Lab Results Fish Bones: 11/11/19 04:50 11/10/19 14:14 Other Labs: Lab Results x24hrs 11/11/19 11/10/19 11/10/19 Range/Units 04:50 18:55 14:14 WBC 16.2 H (4.8-10.8) x10^3/uL RBC 3.92 L (4.20-5.40) 10^6/uL Hgb 12.3 (12.0-16.0) g/dL Hct 37.9 (37.0-47.0) % MCV 96.7 (81.0-99.0) fL MCH 31.4 H (27.0-31.0) pg MCHC 32.5 (32.0-36.0) g/dL RDW 12.0 (12.0-15.0) % Plt Count 293 (130-450) 10^3/uL MPV 10.5 (7.9-10.8) fL Neut # (Auto) 15.1 H (1.5-6.6) 10^3/uL Lymph # (Auto) 0.7 L (1.5-3.5) 10^3/uL [place] # (Auto) 0.3 (0.0-1.0) 10^3/uL Eos # (Auto) 0.0 (0.0-0.7) 10^3/uL Baso # (Auto) 0.0 (0.0-0.1) 10^3/uL Absolute Nucleated RBC 0.00 x10^3/uL Nucleated RBC % 0.0 /100WBC Sodium 138 (135-145) mmol/L Potassium 3.6 (3.5-5.0) mmol/L Chloride 102 (101-111) mmol/L Carbon Dioxide 23 (21-32) mmol/L Anion Gap 13.0 (6-13) BUN 9 (6-20) mg/dL Creatinine 0.6 (0.4-1.0) mg/dL Estimated GFR (MDRD) 115 (>89) Glucose 90 (70-100) mg/dL Calcium 9.2 (8.5-10.3) mg/dL Ur Specific [place] 1.025 (1.002-1.030) Urine HCG, Qual NEGATIVE 11/10/19 Range/Units 14:14 WBC 16.0 H (4.8-10.8) x10^3/uL RBC 4.21 (4.20-5.40) 10^6/uL Hgb 13.6 (12.0-16.0) g/dL Hct 40.7 (37.0-47.0) % MCV 96.7 (81.0-99.0) fL MCH 32.3 H (27.0-31.0) pg MCHC 33.4 (32.0-36.0) g/dL RDW 12.1 (12.0-15.0) % Plt Count 298 (130-450) 10^3/uL MPV 10.0 (7.9-10.8) fL Neut # (Auto) 13.2 H (1.5-6.6) 10^3/uL Lymph # (Auto) 1.7 (1.5-3.5) 10^3/uL [place] # (Auto) 1.0 (0.0-1.0) 10^3/uL Eos # (Auto) 0.1 (0.0-0.7) 10^3/uL Baso # (Auto) 0.1 (0.0-0.1) 10^3/uL Absolute Nucleated RBC 0.00 x10^3/uL Nucleated RBC % 0.0 /100WBC Sodium (135-145) mmol/L Potassium (3.5-5.0) mmol/L Chloride (101-111) mmol/L Carbon Dioxide (21-32) mmol/L Anion Gap (6-13) BUN (6-20) mg/dL Creatinine (0.4-1.0) mg/dL Estimated GFR (MDRD) (>89) Glucose (70-100) mg/dL Calcium (8.5-10.3) mg/dL Ur Specific [place] (1.002-1.030) Urine HCG, Qual Assessment/Plan - Problem List (1) Abscess or cellulitis of submandibular region Impression: 34 yo F POD #1 s/p I&D of the R submandibular, sublingual, and buccal spp w/ removal of tooth #32 following a normal postop course. - GUANAKO 7 -->12 - WBC 16 --> 16.2 Plan: - continue iv abx - Jaw stretching exercises reviewed with the patient - continue drain - dressing change BID and prn - encourage ambulation and good PO intake. - d/c in am pending improvement in clinical picture (swelling, trismus, white count)
--- NOTE | 2019-11-11 17:18 | PHARMACY PROGRESS NOTE ---
- Best Possible Medication History Admit Date and Time: 11/10/19 1644 Processed by: Pharmacy Medication History completed: Yes (Per pt: no established PCP. No PCP noted on patient's profile as well.) Patient Interview: Completed Secondary Source(s): Insurance records (external med history report yielded no med fill history) As the person ultimately responsible for medication therapy, providers are able to order a medication from an existing home medication list in [facility] via the "Reconcile Routine" prior to Confirmation of that medication by passport support associate. Such practice is discouraged except when the physician, in their clinical judgment, deems that a medical need exists for a medication without regard to previous use.
[2019-11-12 04:57] LABS: BASOPHILS % (AUTO) 0.4 %; EOSINOPHILS # (AUTO) 0.1 10^3/uL (0.0-0.7); EOSINOPHILS % (AUTO) 0.6 %; LYMPHOCYTES # (AUTO) 2.6 10^3/uL (1.5-3.5); LYMPHOCYTES % (AUTO) 23.7 %; MEAN CORPUSCULAR HEMOGLOBIN 31.3 pg (27.0-31.0); MEAN CORPUSCULAR HGB CONC 33.1 g/dL (32.0-36.0); MEAN CORPUSCULAR VOLUME 94.3 fL (81.0-99.0); MEAN PLATELET VOLUME 9.9 fL (7.9-10.8); MONOCYTES # (AUTO) 0.8 10^3/uL (0.0-1.0); MONOCYTES % (AUTO) 7.5 %; NEUTROPHILS # (AUTO) 7.2 10^3/uL (1.5-6.6); NEUTROPHILS % (AUTO) 67.2 %; PLT - PLATELET COUNT 269 10^3/uL (130-450); RED BLOOD COUNT 3.52 10^6/uL (4.20-5.40); RED CELL DISTRIBUTION WIDTH 12.1 % (12.0-15.0); WHITE BLOOD COUNT 10.8 x10^3/uL (4.8-10.8)
[2019-11-12] MEDS: AMPICILLIN/SULBACTAM 3 GM in SODIUM CHLORIDE 0.9% MINIBAG 100 ML IV SCH (05:01)
--- NOTE | 2019-11-12 07:51 | PROVIDER PROGRESS NOTE ---
Subjective - Prog Note Date Prog Note Date: 11/12/19 Prog Note Time: 07:46 - Subjective Pt reports feeling: Improved Subjective: No events overnight. Minimal pain medication needs. Good PO intake. Afebrile overnight. Objective - Vital Signs/Intake & Output Intake & Output: Intake & Output 11/09/19 11/10/19 11/11/19 11/12/19 23:59 23:59 23:59 23:59 Intake Total 1989.674 8760 550 Output Total 5600 700 Balance 1521.667 -2120 -150 - Objective General Appearance: positive: No acute distress Eyes Bilateral: positive: PERRL ENT: positive: Other (GUANAKO 15mm. FOM s, nt, ne. Uvula midline, no lateral pharyngeal swelling. Moderate R face and neck swelling. Skin soft, deep tissues indurated. Drain intact. Moderate serosanguinous drainage.) - Lab Results Fish Bones: 11/12/19 04:45 11/10/19 14:14 Other Labs: Lab Results x24hrs 11/12/19 Range/Units 04:45 WBC 10.8 (4.8-10.8) x10^3/uL RBC 3.52 L (4.20-5.40) 10^6/uL Hgb 11.0 L (12.0-16.0) g/dL Hct 33.2 L (37.0-47.0) % MCV 94.3 (81.0-99.0) fL MCH 31.3 H (27.0-31.0) pg MCHC 33.1 (32.0-36.0) g/dL RDW 12.1 (12.0-15.0) % Plt Count 269 (130-450) 10^3/uL MPV 9.9 (7.9-10.8) fL Neut # (Auto) 7.2 H (1.5-6.6) 10^3/uL Lymph # (Auto) 2.6 (1.5-3.5) 10^3/uL [place] # (Auto) 0.8 (0.0-1.0) 10^3/uL Eos # (Auto) 0.1 (0.0-0.7) 10^3/uL Baso # (Auto) 0.0 (0.0-0.1) 10^3/uL Absolute Nucleated RBC 0.00 x10^3/uL Nucleated RBC % 0.0 /100WBC Assessment/Plan - Problem List (1) Abscess or cellulitis of submandibular region Impression: 34 yo F POD #2 s/p I&D of the R submandibular, sublingual, and buccal spp w/ removal of tooth #32 following a normal postoperative course. Plan: - OK for d/c from OMFS standpoint - Will keep in contact with her over the weekend via cell phone - f/u in clinic on Friday - Augmentin after d/c - encouraged good PO intake - reviewed jaw stretching exercises Drain removed this am Keep dressing on wound over the weekend. Gauze and tape ok if she would like to stop wearing the tubular bandage. Appreciate IM assistance. Please call [phone] w/ any questions.
[2019-11-12] MEDS: LACTOBACILLUS RHAMNOSUS GG CAPSULE PO SCH (07:53)
[2019-11-12] MEDS: SODIUM CHLORIDE FLUSH 0.9% 10 ML SYRINGE IVP SCH (07:53)
[2019-11-12] MEDS: ACETAMINOPHEN 325 MG TABLET PO PRN (07:53)
[2019-11-12 08:01] VITALS: BP 124/65
[2019-11-12] MEDS ORDERED: oxyCODONE 5 MG TABLET PO PRN (08:08)
--- NOTE | 2019-11-12 08:30 | Discharge Plan ---
Discharge Plan Problem Reviewed?: Yes Disposition: Home, Self Care Condition: Stable Prescriptions: oxyCODONE [Roxicodone] 5 mg PO Q6HR PRN #12 tablet PRN Reason: Pain Amox/Clav 875/125 [Augmentin 875/125] 1 tab PO BID 5 Days #10 tablet Diet: Regular Activity Restrictions: Activity as Tolerated Shower Restrictions: No Driving Restrictions: No Instruction Topics: Amoxicillin Clavulanic Acid tablets, Oxycodone tablets or capsules, ED Abscess IandD Health Concerns: You were seen in the hospital after there was concern for an infection and fluid collection near your right mandibular area. The oral surgeon saw you and you underwent incision and drainage with removal of one of your teeth 2 days ago. You have been on IV antibiotics with improvement in your swelling. You are also now able to tolerate oral intake. You are now stable for discharge and you need to continue to take antibiotics and follow-up with the oral surgeon. Plan of Treatment: Please take Augmentin 875/125mg Twice a day for 5 more days. Your prescribed oxycodone to take as needed for pain. You may also take Tylenol as needed for pain control. You may keep the dressing on the wound over the weekend. If you would like to stop wearing the bandage, you can use gauze and tape. Please follow-up with the oral surgeon (Dr. Ogden) next Friday as scheduled. Care Goals: If you develop worsening swelling, pain, fever then please return to the emergency department. Assessment: Patient expressed understanding of the treatment plan. No Smoking: If you smoke, Please STOP! Call for help.
[2019-11-12] MEDS ORDERED: AMOX/CLAV 875 MG/125 MG TABLET PO SCH (09:00)
--- NOTE | 2019-11-12 10:17 | DISCHARGE SUMMARY ---
"Discharge Summary Admit Date: 11/10/19 Discharge Date: 11/12/19 Discharging Provider: Juan Daniel Arroyo Code Status: Attempt Resuscitation Condition at Discharge: Stable Discharge Disposition: 01 Home, Self Care - DIAGNOSES Admission Diagnoses: Abscess or cellulitis of submandibular region Preop evaluation Discharge Diagnoses with Status of Each Condition: Abscess of submandibular region - improving. She underwent incision and drainage of abscess from the right submandibular region and removal of tooth #32 on 11/10/19. Was treated with IV Unasyn while inpatient and discharged on oral Augmentin. She will follow-up with Dr. Ogden on Friday. - HPI History of Present Illness: H&P per Dr. Aguilar on 11/10/19: She is a 34-year-old white female who has no major medical illnesses the presents to our emergency room because of jaw pain and swelling.She says that she has this intermittently because of a wisdom tooth on the right side of her jaw that will have growth spurts. Usually pain is transitory, fleeting, and does not last for very long. And only her gum will get swollen. This time the swelling has extended into her jaw and into her face and down her neck and it is scaring her.She went to go see the dentist, who referred her to the emergency room for imaging studies. She has been identified as having a tooth abscess extending into the jaw.On review of systems she has no problems with chest pain, previous history of valvular heart disease, arrhythmias, pneumonias or bronchitis, urgency, frequency, dysuria.She does not take any medication on a regular basis.She has an IUD for control. She does not have a fever but white cell count is 16,000.Soft tissue neck CT shows apparent a couple abscess involving the right mandibular posterior tricuspid tooth. Medial cortical erosion seen with adjacent abscess present to the inferior of the angle of the mandible measuring 15 x 28 x 24 mm. Summers rrounding fascial plane edema and mass-effect is present. - CONSULTS | PROCEDURES Consultations: Oral Maxillofacial Surgery Procedures: Incision and drainage of right submandibular region with removal of tooth #32 on 11/10/19. - HOSPITAL COURSE Hospital Course: Admitted for right facial swelling with concern for a submandibular abscess. She went to the OR on [address] Ogden of oral maxillofacial surgery. She underwent incision and drainage and removal of tooth #32. She treated with Unasyn IV infusion to oral Augmentin. She is able to tolerate a diet. She was discharged home and will follow up with Dr. Ogden on Friday. - ALLERGIES Allergies/Adverse Reactions: Allergies Allergy/AdvReac Type Severity Reaction Status Date / Time No Known Drug Allergies Allergy Verified 11/10/19 14:14 - MEDICATIONS Home Medications: Ambulatory Orders Medication Instructions Recorded Confirmed Flaxseed Oil 1,000 mg PO DAILY 11/11/19 11/11/19 Loratadine [Claritin] 10 mg PO DAILY 11/11/19 11/11/19 Pnv No.121/Iron/Folic Acid 1 tab PO DAILY 11/11/19 11/11/19 [ Multivitamin Tablet] Amox/Clav 875/125 [Augmentin 1 tab PO BID 5 Days #10 tablet 11/12/19 875/125] oxyCODONE [Roxicodone] 5 mg PO Q6HR PRN #12 tablet 11/12/19 - PHYSICAL EXAM AT DISCHARGE General Appearance: positive: No acute distress, Alert Eyes Bilateral: positive: Normal inspection ENT: positive: No signs of dehydration. negative: Pharyngeal erythema Neck: positive: Other (She has right sided neck swelling that is tender to palpation. No erythema. Small incision in place over the neck with serosanguineous drainage.) Respiratory: positive: No respiratory distress. negative: Wheezes, Rales, Rhonchi Cardiovascular: positive: Regular rate & rhythm, No murmur. negative: Systolic murmur, Diastolic murmur Abdomen: positive: Non-tender, No distention. negative: Tenderness Skin: positive: No rash, Warm, Dry Extremities: positive: Full ROM, No pedal edema Neurologic/Psychiatric: positive: Oriented x3. negative: Disoriented to person, Disoriented to place, Disoriented to time - LABS Result Diagrams: 11/12/19 04:45 11/10/19 14:14 - DIAGNOSTIC IMAGING Diagnostic Imaging Results: Final report reviewed - FOLLOW UP Follow Up: Follow-up with Dr. Ogden on 15 of November. - TIME SPENT Time Spent in Discharge (Minutes): 35"
[2019-11-12] MEDS ORDERED: DEXAMETHASONE 4 MG/ML VIAL IVP ONE (10:51)
[2019-11-12] MEDS ORDERED: PROPOFOL 200 MG/20 ML VIAL IVP ONE (10:51)
[2019-11-12] MEDS ORDERED: MIDAZOLAM 2 MG/2 ML VIAL IVP ONE (10:51)
[2019-11-12] MEDS ORDERED: ROCURONIUM 50 MG/5 ML VIAL IVP ONE (10:51)
[2019-11-12] MEDS ORDERED: ESMOLOL 100 MG/10 ML VIAL IVP ONE (10:51)
[2019-11-12] MEDS ORDERED: fentaNYL 100 MCG/2 ML VIAL IVP ONE (10:51)
[2019-11-12] MEDS ORDERED: GLYCOPYRROLATE 1 MG/5 ML VIAL IVP ONE (10:51)
== END 2019-11-12 10:52 | disposition home or self-care (01) | DRG 138 ==
LOC: ED 13:54 → MS2 16:44
PROVIDERS: ADMIT Specialist; ATTEND Internal Medicine
PROC: 0CDXXZ0 Extraction of Lower Tooth, Single, External Approach (ICD-10-PCS; 2019-11-10)
PROC: 0J910ZZ Drainage of Face Subcutaneous Tissue and Fascia, Open Approach (ICD-10-PCS; principal; 2019-11-10 16:30)
DX: K12.2 Cellulitis and abscess of mouth (principal); K04.7 Periapical abscess without sinus; K04.1 Necrosis of pulp; R59.0 Localized enlarged lymph nodes; R25.2 Cramp and spasm; Z97.5 Presence of (intrauterine) contraceptive device; Z87.891 Personal history of nicotine dependence
CPT/HCPCS: 36415; 70491; 80048; 81025; 85025; 96365; 96375; 99284; 99285; A9270; J1170; J7120; Q9967; 87070; 87205